=== PATIENT | male | born 1960 | race Hispanic/Latino ===

== ENCOUNTER → 2023-12-05 | Day surgery (SDC) | payer OTHER ==
[~2023-12-05] MED LIST: GLIMEPIRIDE2 MG PO; HYOSCYAMINE SULFATE 0.5 MG/ML INJ ONE; LIPITOR10 MG PO; LOSARTAN POTAS100 MG PO; METFORMIN HCL500 MG PO; MOUNJARO2.5 MG/0.5 SC
[2023-12-05] MEDS: LACTATED RINGER'S 1,000 ML ONE (09:23)
[2023-12-05 11:00] VITALS: BP 101/59; PULSE 91; RESP 16; TEMP 98.4; O2SAT 98
== END | disposition home or self-care (01) ==
LOC: OR 07:25
PROVIDERS: ATTEND Internal Medicine Gastroenterology
DX: Z12.11 Encounter for screening for malignant neoplasm of colon (principal); K64.8 Other hemorrhoids; K21.9 Gastro-esophageal reflux disease without esophagitis; I10 Essential (primary) hypertension; Z01.810 Encounter for preprocedural cardiovascular examination
CPT/HCPCS: 45378; 93005; J1980; J7121